=== PATIENT | male | born 1960 | race American Indian/Alaskan Native ===

== ENCOUNTER → 2018-01-20 | Outpatient (CLI) | payer SELFPAY ==
[~2018-01-20] MED LIST: ASPI325 PO; ENOX40I SC; LEVSOD100 PO; LISI5 PO; OXYACE5T PO; Omeprazole20 M1 PO
== END | disposition home or self-care (01) ==
LOC: LAB SHORT 10:00 → PLD 10:00
DX: D22.5 Melanocytic nevi of trunk (principal); L82.1 Other seborrheic keratosis
CPT/HCPCS: 88305

== ENCOUNTER → 2019-01-21 | Outpatient (CLI) | payer SELFPAY | END | disposition home or self-care (01) | LOC: PLD 10:34 → LAB SHORT 10:34 | DX: D22.5 Melanocytic nevi of trunk (principal) | CPT/HCPCS: 88305 ==

== ENCOUNTER → 2019-07-22 | Outpatient (CLI) | payer SELFPAY | END | disposition home or self-care (01) | LOC: LAB SHORT 11:57 → PLD 11:57 | DX: L82.1 Other seborrheic keratosis (principal) | CPT/HCPCS: 88305 ==

== ENCOUNTER 2021-11-25 08:30 | Emergency (ER) | payer OTHER ==
[~2021-11-25] VITALS: Ht 177.8 cm; Wt 106.6 kg
[2021-11-25 09:14] LABS: Source, Urine Foley catheter
[2021-11-25 09:41] LABS: Appearance, Urine Clear (Clear); Bilirubin, Urine Neg (Neg); Blood, Urine 4+ (Neg); Color, Urine Yellow (P-Yellow); Glucose Qualitative, Urine Neg (Neg); Ketones, Urine 1+ (Neg); Leukocyte Esterase, Urine Neg (Neg); Nitrite, Urine Neg (Neg); Protein, Urine Neg (Neg); Specific Gravity, Urine 1.015 (1.003-1.022); Urobilinogen, Urine NORM (Normal)
[2021-11-25 10:00] LABS: White Blood Cells, Urine Not Seen /hpf (0-5)
[2021-11-25 10:01] LABS: Red Blood Cells, Urine 0-2 /hpf (0-2)
[2021-11-25 10:02] LABS: Bacteria Rare /hpf; Hyaline Casts 0-2 /lpf (0-2); Mucus Light (0-Heavy); Squamous Epithelial Cells Rare /hpf (Few)
== END 2021-11-25 12:20 | disposition home or self-care (01) ==
LOC: ER 08:30
PROVIDERS: Student in an Organized Health Care Education/Training Program
DX: N20.1 Calculus of ureter (principal); I10 Essential (primary) hypertension; K21.9 Gastro-esophageal reflux disease without esophagitis; Z88.0 Allergy status to penicillin; Z79.899 Other long term (current) drug therapy
CPT/HCPCS: 51702; 51798; 74176; 81001